=== PATIENT | male | born 1965 | race American Indian/Alaskan Native ===

== ENCOUNTER 2018-06-05 18:21 | Emergency (ER) | payer SELFPAY ==
[2018-06-05] MEDS ORDERED: Naproxen 550 mg Tab PO STA (19:08)
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
[2018-06-05 20:46] VITALS: BP 119/88; PULSE 81; RESP 16; TEMP 98; O2SAT 99
--- NOTE | 2018-06-06 11:35 | RAD ---
Date of service: 06/05/2018 PROCEDURE: Radiographs of the Right Shoulder HISTORY: Pain. No history of recent/ related trauma provided COMPARISON: No prior. FINDINGS: BONES: Normal. No fracture. JOINTS: Normal. Glenohumeral and acromioclavicular joints preserved. No osteoarthritis. SOFT TISSUES: Normal. OTHER FINDINGS: None. IMPRESSION: Normal radiographs of the right shoulder.
== END 2018-06-05 20:45 | disposition home or self-care (01) ==
LOC: ED 18:21
DX: S43.401A Unspecified sprain of right shoulder joint, initial encounter (principal); V49.49XA Driver injured in collision with other motor vehicles in traffic accident, initial encounter; Y92.410 Unspecified street and highway as the place of occurrence of the external cause